=== PATIENT | female | born 1965 | race American Indian/Alaskan Native ===

== ENCOUNTER 2016-03-27 09:53 | Day surgery (SDC) | payer MEDICAID ==
[2016-03-27] MEDS ORDERED: DIPRIVAN 10 MG/ML IV ONE (10:48)
--- NOTE | 2016-03-27 10:57 | Anesthesia Consultation ---
Anesthesia Consult and Med Hx Date of service: 03/27/16 - Airway Anesthetic Teeth Evaluation: Good ROM Head & Neck: Adequate Mental/Hyoid Distance: Adequate Mallampati Class: Class III Intubation Access Assessment: Possibly Difficult - Pulmonary Exam CTA: Yes - Cardiac Exam Cardiac Exam: RRR - Pre-Operative Health Status ASA Pre-Surgery Classification: ASA3 Proposed Anesthetic Plan: MAC - Pulmonary SOB: Yes Hx Sleep Apnea: Yes - Cardiovascular System Hx Hypertension: Yes - Gastrointestinal Hx Gastroesophageal Reflux Disease: Yes - Endocrine Hx Non-Insulin Dependent Diabetes: Yes - Hematic Hx Anemia: Yes - Other Systems Hx Alcohol Use: Yes (OCCAS) Hx Obesity: Yes
--- NOTE | 2016-03-27 10:57 | Anesthesia Day of Surgery ---
Anesthesia Day of Surgery - Day of Surgery Patient Examined: Yes Patient H&P Reviewed: Yes Patient is NPO: Yes
[2016-03-27] MEDS ORDERED: NACL 0.9% 1000 ML 1,000 ML IV SCH (11:00)
--- NOTE | 2016-03-27 12:14 | Post Anesthesia Evaluation ---
- Post Anesthesia Evaluation Patient Participated: Yes Airway Patent: Yes Stable Respiratory Function: Yes Nausea/Vomiting: No Temp > 96.8F: Yes Pain Manageable: Yes Adequeate Hydration: Yes Anesthesia Complications: No Block Receding Appropriately: Not Applicable Patient on Ventilator: No
[2016-03-27 12:15] VITALS: BP 141/87
== END 2016-03-27 09:54 | disposition home or self-care (01) ==
LOC: GIO 09:53
PROVIDERS: ATTEND Specialist
DX: K21.0 Gastro-esophageal reflux disease with esophagitis (principal); K44.9 Diaphragmatic hernia without obstruction or gangrene; I10 Essential (primary) hypertension; E11.9 Type 2 diabetes mellitus without complications; M19.90 Unspecified osteoarthritis, unspecified site; D64.9 Anemia, unspecified; F32.9 Major depressive disorder, single episode, unspecified; F41.9 Anxiety disorder, unspecified; E78.00 Pure hypercholesterolemia, unspecified; E66.01 Morbid (severe) obesity due to excess calories; Z68.43 Body mass index [BMI] 50.0-59.9, adult; Z72.89 Other problems related to lifestyle; Z86.718 Personal history of other venous thrombosis and embolism; Z90.710 Acquired absence of both cervix and uterus
CPT/HCPCS: 43235; 82962; J2704; J7030

== ENCOUNTER 2016-04-03 08:32 | Inpatient (IN) | payer MEDICAID ==
--- NOTE | 2016-03-15 12:34 | Anesthesia Consultation ---
Anesthesia Consult and Med Hx Date of service: 04/03/16 - Airway Anesthetic Teeth Evaluation: Good ROM Head & Neck: Adequate Mental/Hyoid Distance: Adequate Mallampati Class: Class III Intubation Access Assessment: Probably Good - Pulmonary Exam CTA: Yes - Cardiac Exam Cardiac Exam: RRR - Pre-Operative Health Status ASA Pre-Surgery Classification: ASA3 Proposed Anesthetic Plan: General - Pulmonary Hx Sleep Apnea: Yes (09/2015) - Cardiovascular System Hx Hypertension: Yes (6 MONTHS) - Endocrine Hx Non-Insulin Dependent Diabetes: Yes - Hematic Hx Anemia: Yes - Other Systems Hx Alcohol Use: Yes (OCCAS)
[2016-03-15 12:56] LABS: Basophils % (Auto) 0.8 % (0.0-1.8); Eosinophils % (Auto) 2.6 % (0.0-4.3); Hematocrit 42.2 % (30.3-42.9); Hemoglobin 13.5 gm/dl (10.1-14.3); Mean Corpuscular HGB Conc 32 % (30-34); Mean Corpuscular Volume 75 fl (79-97); Platelet Count 207 K/mm3 (140-440); Red Blood Count 5.61 M/mm3 (3.65-5.03); Red Cell Distribution Width 15.6 % (13.2-15.2); White Blood Count 5.4 K/mm3 (4.5-11.0)
[2016-03-15 12:59] LABS: Mean Corpuscular Hemoglobin 24 pg (28-32)
[2016-03-15 13:19] LABS: Alanine Aminotransferase 36 units/L (7-56); Albumin 4.3 g/dL (3.9-5); Albumin/Globulin Ratio 1.4 %; Alkaline Phosphatase 95 units/L (35-129); BUN/Creatinine Ratio 26.66; Bilirubin,Total 0.5 mg/dL (0.1-1.2); Blood Urea Nitrogen 16 mg/dL (7-17); Calcium 8.9 mg/dL (8.4-10.2); Carbon Dioxide 27 mmol/L (22-30); Chloride 101.6 mmol/L (98-107); Glucose 122 mg/dL (65-100); Potassium 3.7 mmol/L (3.6-5.0); Sodium 143 mmol/L (137-145); Total Protein 7.4 g/dL (6.3-8.2)
[2016-03-15 13:22] LABS: Anion Gap 18 mmol/L
[~2016-04-03 08:32] MED LIST: LACTATED RINGERS 1,000 ML IV SCH; MARCAINE-EPI 0.5%-1:200,000 INFILTRATI ONE; NACL 0.9% IR ONE; PEPCID PO NR; XYLOCAINE 1% 20 mL INFILTRATI ONE
[2016-04-03] MEDS ORDERED: PEPCID IV NR (09:08)
[2016-04-03] MEDS: VERSED IV NR ×2 (09:48→10:19)
[2016-04-03] MEDS ORDERED: ZOFRAN IV PRN ×2 (09:52→16:25)
[2016-04-03] MEDS ORDERED: LOVENOX SUB-Q NR (10:00)
[2016-04-03] MEDS ORDERED: NACL 0.9% 1000 ML 1,000 ML IV SCH (10:00)
[2016-04-03] MEDS ORDERED: ANCEF/STERILE WATER 2 GM/20 ML IV NR (10:00)
[2016-04-03] MEDS ORDERED: FLAGYL 500 MG/100 ML 100 ML IV NR (10:00)
[2016-04-03] MEDS ORDERED: DEMEROL IV PRN (10:01)
[2016-04-03] MEDS: NACL 0.9% 1000 ML 1,000 ML IV SCH ×2 (10:14→18:30)
[2016-04-03] MEDS ORDERED: DIPRIVAN 10 MG/ML IV ONE (12:46)
[2016-04-03] MEDS ORDERED: DILAUDID ONE (12:46)
[2016-04-03] MEDS ORDERED: WATER FOR IRRIG STERILE IR ONE (13:18)
--- NOTE | 2016-04-03 13:32 | Anesthesia Day of Surgery ---
Anesthesia Day of Surgery - Day of Surgery Patient Examined: Yes Patient H&P Reviewed: Yes Patient is NPO: Yes
--- NOTE | 2016-04-03 13:51 | Admit Criteria Form ---
Admission Criteria Documentation: AMBULATORY SURGERY EXCEPTION CRITERIA Ambulatory Surgery Exception Criteria ( Place 'X' for any and all applicable criteria): Surgery or procedure performed on ambulatory basis may require inpatient stay for[A] ANY ONE of the following(1)(2)(3)(4)(5)(6)(7)(8)(9): [X] I. A preoperative situation, condition, or finding that warrants inpatient stay as indicated by ANY ONE of the following: [] a) Inpatient care needed because of severity of a disease or condition rather than the surgery (eg, severe cardiac or respiratory disease, severe infection) (15) (16 ) (17) (18) [] b) Emergent procedure (eg, angioplasty for acute ischemia)(19) [] c) Complex surgical approach or situation as indicated by ANY ONE of the following(3): [] i) Open approach needed instead of usual endoscopic, transcatheter, or other less invasive procedure [] ii) Difficult approach because of previous operation [] iii) Airway monitoring required after open neck procedures(20)(21) [] iv) Large mass requiring unusually extensive dissection [] v) Additional complicating feature requiring inpatient care (eg, drain management)(22(23): [X] d) Major surgery in a pt with high anesthetic risk as indicated by ANY ONE of the following (2)(3)(5)(7)(8): [X] i) ASA risk class III or higher (severe systemic disease impairing function) [D] [] ii) Advanced age (eg, older than 85 years)(14)(24) [] iii) Symptomatic heart failure(25) [] iv) Symptomatic asthma or COPD(8)(21) [X] v) Morbid obesity with hemodynamic or respiratory problems(20)( 21)(26)(27) [] vi) Obstructive sleep apnea(20)(21) [] vii) Former premature infants who are younger than 60 weeks [] viii) High risk for severe postoperative abnormalities (eg, severe postoperative hypocalcemia after parathyroidectomy for severe hyperparathyroidism)(27)( 28) [] ix) Unstable angina(25) [] e) Drug-related risk requiring inpatient stay as indicated by ANY ONE of the following(5)(10)(14)(32)(33) [] i) Procedure requires discontinuing drugs or other therapy (eg , antiarrhythmic medication, antiseizure medication), which necessitates inpatient observation or treatment.(18)(31) [] ii) Major surgery and high risk drug use as indicated by ANY ONE of the following: [] 1) Active abuse of cocaine or similar drug [] 2) Monoamine oxidase inhibitor use [] 3) Other drug identified as posing risk [] f) Inadequate outpatient care situation as indicated by ANY ONE of the following(5)(10)(14)(32)(33) [] i) Patient lives remote from medical facility and procedure has urgent complication potential, and temporary nearby residence cannot be arranged [] ii) Patient will have postprocedure incapacitation and inadequate assistance at home, or alternative level of care cannot be arranged. [] iii) Patient will have long general anesthesia or procedure side effect resolution time, and competent person to stay with patient on first postoperative night at home or alternative level of care cannot be arranged. []iv) Other inadequate outpatient situation that cannot be handled by other means [] II. A perioperative event, condition, or finding that warrants inpatient stay as indicated by ANY ONE of the following (1)(2)(3): [] a) Inadequate physiologic recovery: cardiovascular, respiratory, or hemodynamic status not normal or near preoperative baseline(18) [] b) Hemodynamic instability [] c) Patient not alert with near normal or baseline mental status [] d) Temperature not normal or as expected and not appropriate for outpatient treatment of condition [] e) Ambulatory or appropriate activity level status not yet achieved post procedure [E](34)(35)(36) [] f) Operative site not appropriate (eg, unexpected or excessive drainage or bleeding) [] g) Postoperative effects not resolved or adequately managed (eg, significant pain or vomiting not appropriate for outpatient or next level of care)(10)(12) [] h) Complicating features requiring inpatient care as indicated by ANY ONE of the following(37): [] i) Severe complications of procedure (eg, bowel injury, airway compromise, vascular injury,severe hemorrhage) [] ii) Extensive (eg, dissection far beyond usual scope of procedure ) or prolonged (eg, 120 minutes beyond usual) surgery needed requiring inpatient postoperative care [] iii) Conversion to an open or complex procedure that requires inpatient care (eg, open vs laparoscopic cholecystectomy, abdominal vs vaginal hysterectomy)(38) [] iv) Comorbid condition or test result identified during or post procedure that requires inpatient care (7) [] v) Malignant hyperthermia(30) [] vi) Other complicating feature requiring inpatient care(22)(23) Inpatient stay may be needed until ALL of the following are present (1)(2)(3)(4) (5)(6)(10)(14)(33)(40): []a) Physiologic recovery: cardiovascular, respiratory, and hemodynamic status normal or near preoperative baseline []b) Hemodynamic stability []c) Patient alert, with near normal or baseline mental status []d) Temperature appropriate: patient afebrile or temperature appropriate for outpt treatment of condition []e) Activity level appropriate: ambulatory or appropriate activity level post procedure []f) Operative site appropriate as indicated by ALL of the following: []i) Site dry or with expected drainage []ii) Any blood noted is as expected for procedure. []g) Postoperative effects resolved or managed as indicated by ALL of the following: []i) Pain management appropriate for outpatient (or next level of) care(10) []ii) Minimal nausea and vomiting: if present, successfully treated with oral medication(12) []iii) Headache, dizziness, or drowsiness (if present) are mild. []h) Voiding status acceptable as indicated by ANY ONE of the following: []i) Voiding spontaneously []ii) No voiding but instructions given for follow-up in 6 to 8 hours []iii) Urinary catheter in place, and instructions given for follow-up []i) Complicating features requiring inpatient care manageable at a lower level of care(37) []j) Comorbid conditions manageable at a lower level of care(37) The original [facility] content created by [employer] [employer] has been revised. The portions of the content which have been revised are identified through the use of italic text or in bold, and [facility] has neither reviewed nor approved the modified material. All other unmodified content is copyright [facility]. Please see references footnoted in the original [facility] edition 2016 Admission Criteria Met: Yes
[2016-04-03] MEDS ORDERED: TRANSDERM-SCOP TD NR (14:00)
[2016-04-03] MEDS ORDERED: ZEMURON IV ONE (14:03)
[2016-04-03] MEDS ORDERED: XYLOCAINE MPF 2% ONE (14:03)
[2016-04-03] MEDS ORDERED: BLOXIVERZ ONE (14:03)
[2016-04-03] MEDS ORDERED: DECADRON ONE (14:03)
[2016-04-03] MEDS ORDERED: QUELICIN ONE (14:03)
[2016-04-03] MEDS ORDERED: ROBINUL ONE (14:03)
[2016-04-03] MEDS ORDERED: NEO SYNEPHRINE/NS Syringe(OR USE) IV ONE (14:41)
[2016-04-03] MEDS ORDERED: XYLOCAINE 1% 20 mL INFILTRATI ONE (14:57)
[2016-04-03] MEDS ORDERED: MARCAINE-EPI 0.5%-1:200,000 INFILTRATI ONE (14:57)
[2016-04-03] MEDS ORDERED: NACL 0.9% IR ONE (14:57)
[2016-04-03] MEDS ORDERED: NACL 0.9% 1000 ML 1,000 ML ONE (15:01)
[2016-04-03] MEDS: TORADOL IV SCH ×3 (16:25→23:48)
[2016-04-03] MEDS: DILAUDID IV PRN ×5 (16:32→20:58)
[2016-04-03] MEDS: ZOFRAN IV PRN (20:59)
[2016-04-03] MEDS: LOVENOX SUB-Q SCH (21:00)
[2016-04-04] MEDS: ZOFRAN IV PRN ×2 (03:13→09:21)
[2016-04-04] MEDS: DILAUDID IV PRN ×2 (03:13→09:21)
[2016-04-04] MEDS: LOVENOX SUB-Q SCH (09:21)
[2016-04-04] MEDS: TORADOL IV SCH (12:00)
[2016-04-04 14:50] LABS: Phosphorous 3.5 mg/dL (2.5-4.5)
--- NOTE | 2016-04-04 15:38 | Discharge Summary ---
Providers - Providers Date of Admission: 04/03/16 08:32 Date of discharge: 04/04/16 Attending physician: JOSEPH KABA Primary care physician: SAYRA FLORES MD Hospitalization Reason for admission: post op observation Condition: Stable Disposition: DISCHARGED TO HOME OR SELFCARE Core Measure Documentation - Palliative Care Palliative Care/ Comfort Measures: Not Applicable - Core Measures Any of the following diagnoses?: none Exam - Physical Exam Narrative exam: VSS, AF NAD Lungs CTA BL Heart: RRR Abd Soft, Non distended, wounds c/d/i and TTP around wounds Neuro: AAOx3 - Constitutional Vitals: Temp Pulse Resp BP Pulse Ox 98.2 F 97 H 20 172/97 96 04/04/16 00:22 04/04/16 00:22 04/04/16 00:22 04/04/16 00:22 04/04/16 00:22 Plan Activity: advance as tolerated Weight Bearing Status: Full Weight Bearing Diet: other (Bariatric Diet stage 1) Wound: keep clean and dry Special Instructions: no heavy lifting Follow up with: PRIMARY CAREMD [Primary Care Provider] - 7 Days
[2016-04-04 16:20] VITALS: BP 117/59
[2016-04-04 19:53] LABS: Alanine Aminotransferase 52 units/L (7-56); Albumin 4.4 g/dL (3.9-5); Albumin/Globulin Ratio 1.4 %; Alkaline Phosphatase 80 units/L (35-129); Anion Gap 28 mmol/L; Bilirubin,Total 0.5 mg/dL (0.1-1.2); Blood Urea Nitrogen 8 mg/dL (7-17); Calcium 8.8 mg/dL (8.4-10.2); Carbon Dioxide 18 mmol/L (22-30); Glucose 105 mg/dL (65-100); Potassium 4.1 mmol/L (3.6-5.0); Sodium 142 mmol/L (137-145); Total Protein 7.6 g/dL (6.3-8.2)
--- NOTE | 2016-04-09 11:52 | Discharge Summary ---
Providers - Providers Date of Admission: 04/03/16 08:32 Attending physician: JOSEPH KABA Primary care physician: [employer] Hospitalization Condition: Good Disposition: DISCHARGED TO HOME OR SELFCARE Core Measure Documentation - Palliative Care Palliative Care/ Comfort Measures: Not Applicable - Core Measures Any of the following diagnoses?: none Exam - Constitutional Vitals: Temp Pulse Resp BP Pulse Ox 98.5 F 71 18 117/59 96 04/04/16 08:00 04/04/16 08:00 04/04/16 08:00 04/04/16 08:00 04/04/16 10:00 General appearance: Present: no acute distress, well-nourished - EENT Eyes: Present: PERRL, EOM intact ENT: hearing intact, clear oral mucosa, dentition normal - Neck Neck: Present: supple, normal ROM - Respiratory Respiratory effort: normal Respiratory: bilateral: CTA - Cardiovascular Rhythm: regular - Extremities Extremities: no ischemia, pulses intact, No edema Peripheral Pulses: within normal limits - Abdominal General gastrointestinal: Present: soft, non-tender Female genitourinary: Present: normal - Rectal Rectal Exam: deferred - Integumentary Integumentary: Present: clear, warm, dry - Musculoskeletal Musculoskeletal: strength equal bilaterally - Psychiatric Psychiatric: appropriate mood/affect - Neurologic Neurologic: moves all extremities Plan Activity: no restrictions Follow up with: PRIMARY CARE, [Primary Care Provider] - 7 Days
== END 2016-04-04 13:00 | disposition home or self-care (01) | DRG 620 ==
LOC: 3A 08:32 → 2B-SURG 16:39
PROVIDERS: ADMIT Specialist; ATTEND Specialist
PROC: 0BQS4ZZ (ICD-10-PCS; principal; 2016-04-03)
PROC: 0DB64Z3 Excision of Stomach, Percutaneous Endoscopic Approach, Vertical (ICD-10-PCS; principal; 2016-04-03)
PROC: 0BQR4ZZ (ICD-10-PCS; principal; 2016-04-03)
DX: E66.01 Morbid (severe) obesity due to excess calories (principal); K50.90 Crohn's disease, unspecified, without complications; E11.9 Type 2 diabetes mellitus without complications; F41.9 Anxiety disorder, unspecified; F32.9 Major depressive disorder, single episode, unspecified; M19.90 Unspecified osteoarthritis, unspecified site; I10 Essential (primary) hypertension; E78.5 Hyperlipidemia, unspecified; K21.9 Gastro-esophageal reflux disease without esophagitis; Z68.43 Body mass index [BMI] 50.0-59.9, adult; Z83.3 Family history of diabetes mellitus; Z82.49 Family history of ischemic heart disease and other diseases of the circulatory system; Z80.9 Family history of malignant neoplasm, unspecified; Z84.89 Family history of other specified conditions; Z88.6 Allergy status to analgesic agent; Z90.710 Acquired absence of both cervix and uterus; Z71.3 Dietary counseling and surveillance; K44.9 Diaphragmatic hernia without obstruction or gangrene
CPT/HCPCS: 36415; 80053; 82962; 83036; 83735; 84100; 85025; 88307; 94760; C9250; J0330; J0690; J1100; J1170; J1650; J1885; J2250; J2370; J2405; J2704; J2710; J7030; J7120

== ENCOUNTER 2017-11-13 11:00 | Outpatient (CLI) | payer MEDICAID | END 2017-11-13 11:01 | disposition home or self-care (01) | LOC: SLR 11:00 | PROVIDERS: ATTEND Otolaryngology | DX: G47.33 Obstructive sleep apnea (adult) (pediatric) (principal); R06.83 Snoring; E78.00 Pure hypercholesterolemia, unspecified; I10 Essential (primary) hypertension; K21.9 Gastro-esophageal reflux disease without esophagitis; E66.9 Obesity, unspecified; M19.90 Unspecified osteoarthritis, unspecified site; E11.9 Type 2 diabetes mellitus without complications; Z90.89 Acquired absence of other organs; Z90.49 Acquired absence of other specified parts of digestive tract; Z90.710 Acquired absence of both cervix and uterus | CPT/HCPCS: 95811 ==

== ENCOUNTER 2018-06-17 06:17 | Observation (INO) | payer MEDICAID ==
--- NOTE | 2018-06-16 09:54 | Anesthesia Consultation ---
Anesthesia Consult and Med Hx Date of service: 06/16/18 - Airway Anesthetic Teeth Evaluation: Good ROM Head & Neck: Adequate Mental/Hyoid Distance: Adequate Mallampati Class: Class III Intubation Access Assessment: Probably Good - Pulmonary Exam CTA: Yes - Cardiac Exam Cardiac Exam: RRR - Pre-Operative Health Status ASA Pre-Surgery Classification: ASA3 Proposed Anesthetic Plan: General - Pulmonary Hx Smoking: No Hx Asthma: No SOB: Yes (WITH EXERTION) Hx Sleep Apnea: Yes - Cardiovascular System Hx Hypertension: Yes (2013) Hx Heart Attack/AMI: No Hx Cardia Arrhythmia: No Hx Valvular Heart Disease: No Hx Heart Murmur: No - Central Nervous System Hx Neuromuscular Disorder: Yes (h/o diabetic neuropathy hands and feet. ) Hx Psychiatric Problems: Yes - Gastrointestinal Hx Gastroesophageal Reflux Disease: Yes (due to hiatal hernia) - Endocrine Hx Renal Disease: No Hx Liver Disease: No Hx Non-Insulin Dependent Diabetes: Yes (resolved; residual diabetic neuropathy) Hx Thyroid Disease: No - Hematic Hx Anemia: Yes - Other Systems Hx Alcohol Use: No (OCCAS) Hx Substance Use: No Hx Obesity: Yes - Additional Comments Anesthesia Medical History Comments: No GAC, No FHAC
--- NOTE | 2018-06-16 10:25 | Anesthesia Consultation ---
Anesthesia Consult and Med Hx Date of service: 06/17/18 - Airway Anesthetic Teeth Evaluation: Good ROM Head & Neck: Adequate Mental/Hyoid Distance: Adequate Mallampati Class: Class II Intubation Access Assessment: Probably Good - Pulmonary Exam CTA: Yes - Cardiac Exam Cardiac Exam: RRR - Pre-Operative Health Status ASA Pre-Surgery Classification: ASA3 Proposed Anesthetic Plan: General - Pulmonary Hx Smoking: No Hx Asthma: No SOB: Yes (WITH EXERTION) Hx Sleep Apnea: Yes - Cardiovascular System Hx Hypertension: Yes (2013) Hx Heart Attack/AMI: No Hx Cardia Arrhythmia: No Hx Valvular Heart Disease: No Hx Heart Murmur: No - Central Nervous System Hx Neuromuscular Disorder: Yes (h/o diabetic neuropathy hands and feet. ) Hx Psychiatric Problems: Yes - Gastrointestinal Hx Gastroesophageal Reflux Disease: Yes (due to hiatal hernia) - Endocrine Hx Renal Disease: No Hx Liver Disease: No Hx Non-Insulin Dependent Diabetes: Yes (resolved; residual diabetic neuropathy) Hx Thyroid Disease: No - Hematic Hx Anemia: Yes - Other Systems Hx Alcohol Use: No (OCCAS) Hx Substance Use: No Hx Obesity: Yes - Additional Comments Anesthesia Medical History Comments: No GAC, No FHAC
[~2018-06-17 06:17] MED LIST changes: +ANCEF/STERILE WATER 2 GM/20 ML 2 GM/20 ML SYRINGE IV NR; +FLAGYL 500 MG/100 ML 500 MG/100 ML BAG IV NR; +LOVENOX SUB-Q NR; -MARCAINE-EPI 0.5%-1:200,000 INFILTRATI ONE; -NACL 0.9% IR ONE; -PEPCID PO NR; +TRANSDERM-SCOP TD SCH; -XYLOCAINE 1% 20 mL INFILTRATI ONE
[2018-06-17] MEDS ORDERED: NACL BACTERIOSTATIC INFILTRATI ONE (06:59)
[2018-06-17] MEDS ORDERED: DIPRIVAN 10 MG/ML IV ONE (07:20)
[2018-06-17] MEDS ORDERED: ZEMURON IV ONE (07:20)
[2018-06-17] MEDS ORDERED: SUBLIMAZE ONE (07:20)
[2018-06-17] MEDS ORDERED: XYLOCAINE MPF 2% ONE (07:20)
[2018-06-17] MEDS ORDERED: VERSED IV NR (07:29)
[2018-06-17] MEDS ORDERED: XYLOCAINE 1% 20 mL ONE (07:38)
[2018-06-17] MEDS ORDERED: MARCAINE-EPI 0.5%-1:200,000 INFILTRATI ONE ×2 (07:39→07:57)
[2018-06-17] MEDS ORDERED: NACL 0.9% IR ONE ×2 (07:57)
[2018-06-17] MEDS ORDERED: XYLOCAINE 1% 20 mL INFILTRATI ONE (07:57)
[2018-06-17] MEDS ORDERED: ANCEF/STERILE WATER 2 GM/20 ML 2 GM/20 ML SYRINGE IV NR (08:00)
[2018-06-17] MEDS ORDERED: FLAGYL 500 MG/100 ML 500 MG/100 ML BAG IV NR (08:00)
[2018-06-17] MEDS ORDERED: LOVENOX SUB-Q NR (08:00)
[2018-06-17] MEDS ORDERED: SUBLIMAZE IV PRN (08:16)
--- NOTE | 2018-06-17 08:16 | Anesthesia Day of Surgery ---
Anesthesia Day of Surgery - Day of Surgery Patient Examined: Yes Patient H&P Reviewed: Yes Patient is NPO: Yes Cardiac Clearance: Yes
[2018-06-17] MEDS ORDERED: NEO SYNEPHRINE ONE ×2 (09:14→09:16)
[2018-06-17] MEDS ORDERED: NEO SYNEPHRINE/NS Syringe(OR USE) IV ONE (09:14)
[2018-06-17] MEDS ORDERED: ZOFRAN IV PRN (09:23)
[2018-06-17] MEDS ORDERED: APRESOLINE IV PRN (09:23)
[2018-06-17] MEDS ORDERED: REGLAN IV PRN (09:23)
[2018-06-17] MEDS ORDERED: FLEXERIL PO PRN (09:27)
[2018-06-17] MEDS ORDERED: LACTATED RINGERS 1,000 ML IV SCH (10:00)
[2018-06-17] MEDS: NEURONTIN PO SCH ×2 (10:00→21:22)
[2018-06-17] MEDS ORDERED: LOVENOX SUB-Q SCH (10:00)
[2018-06-17] MEDS ORDERED: LACTATED RINGERS 1,000 ML ONE (10:17)
[2018-06-17] MEDS: DILAUDID IV PRN ×4 (12:31→23:19)
--- NOTE | 2018-06-17 14:11 | Post Anesthesia Evaluation ---
- Post Anesthesia Evaluation Patient Participated: Yes Airway Patent: Yes Stable Respiratory Function: Yes Nausea/Vomiting: No Temp > 96.8F: Yes Pain Manageable: Yes Adequeate Hydration: Yes Anesthesia Complications: No
[2018-06-17] MEDS: MYLICON PO PRN ×2 (16:29→22:41)
[2018-06-17] MEDS: TRANSDERM-SCOP TD SCH ×2 (19:53→19:55)
[2018-06-17] MEDS ORDERED: AMBIEN PO PRN (22:00)
[2018-06-17] MEDS ORDERED: PRAVACHOL PO SCH (22:00)
[2018-06-17] MEDS: NORCO PO PRN (22:39)
[2018-06-18 05:29] LABS: Basophils % (Auto) 0.3 % (0.0-1.8); Eosinophils % (Auto) 0.7 % (0.0-4.3); Hematocrit 37.1 % (30.3-42.9); Hemoglobin 12.1 gm/dl (10.1-14.3); Lymphocytes # (Auto) 1.2 K/mm3 (1.2-5.4); Lymphocytes % (Auto) 17.2 % (13.4-35.0); Mean Corpuscular HGB Conc 33 % (30-34); Mean Corpuscular Volume 77 fl (79-97); Monocytes # (Auto) 0.4 K/mm3 (0.0-0.8); Monocytes % (Auto) 6.1 % (0.0-7.3); Platelet Count 221 K/mm3 (140-440); Red Blood Count 4.84 M/mm3 (3.65-5.03); Red Cell Distribution Width 14.6 % (13.2-15.2)
[2018-06-18 05:56] LABS: Alanine Aminotransferase 56 units/L (7-56); Albumin 3.8 g/dL (3.9-5); BUN/Creatinine Ratio 15; Blood Urea Nitrogen 9 mg/dL (7-17); Calcium 8.6 mg/dL (8.4-10.2); Hemolysis Index 4
[2018-06-18] MEDS: DILAUDID IV PRN (06:00)
--- NOTE | 2018-06-18 07:47 | Discharge Summary ---
Providers - Providers Date of Admission: 06/17/18 09:25 Date of discharge: 06/18/18 Attending physician: JOSEPH ADAMS Primary care physician: YARIEL JOYNER Hospitalization Reason for admission: postop monitoring Condition: Good Procedures: 06/17/18: Laparoscopic conversion sleeve to Maxwell-en-Y gastric bypass Hospital course: 52F admitted after her operation for routine postop care. She had no events overnight, ambulated, and tolerated a CLD. She was dc home in stable condition. Disposition: DC-01 TO HOME OR SELFCARE Core Measure Documentation - Palliative Care Palliative Care/ Comfort Measures: Not Applicable - Core Measures Any of the following diagnoses?: none - VTE Discharge Requirements Deep Vein Thrombosis/Pulmonary Embolism Present on Admission: No - Acute [place] Discharge Requirements Aspirin at discharge: No Reason for no aspirin on DC: Surgical contraindication - Heart Failure Discharge Requirements PAPA/ARB for LVSD if EF <40%: Not Applicable - Stroke Discharge Requirements Statin for LDL = or >70 mg/dl on DC: Not Applicable Exam - Physical Exam Narrative exam: Gen: AAO, NAD Heart: RRR Lungs: CTAB, no wheezes, no rales Abd: Obese, soft, NT, ND. Bandages c/d/i. Ext: No LE edema. - Constitutional Vitals: Temp Pulse Resp BP Pulse Ox 98.6 F 70 18 114/61 88 06/18/18 07:05 06/18/18 07:05 06/18/18 07:05 06/18/18 07:05 06/18/18 07:05 Plan Diet: clear liquids Special Instructions: no heavy lifting Additional Instructions: Hany Adams as scheduled Follow up with: YARIEL JOYNER III, [employer] [Primary Care Provider] - 7 Days
[2018-06-18] MEDS ORDERED: NORVASC PO SCH (10:00)
[2018-06-18] MEDS ORDERED: LOVENOX SUB-Q SCH (10:00)
[2018-06-18] MEDS ORDERED: DIOVAN PO SCH (10:00)
[2018-06-18] MEDS: NEURONTIN PO SCH (10:00)
[2018-06-18] MEDS: NORCO PO PRN ×2 (10:07→14:55)
[2018-06-18 11:44] VITALS: BP 106/70
[2018-06-18] MEDS: MYLICON PO PRN (12:56)
== END 2018-06-18 15:40 | disposition home or self-care (01) ==
LOC: OR 06:17 → 3B-SURG 09:25
PROVIDERS: ADMIT Specialist; ATTEND Specialist
DX: E66.01 Morbid (severe) obesity due to excess calories (principal); R10.13 Epigastric pain; I10 Essential (primary) hypertension; E78.00 Pure hypercholesterolemia, unspecified; M19.90 Unspecified osteoarthritis, unspecified site; F32.9 Major depressive disorder, single episode, unspecified; F41.9 Anxiety disorder, unspecified; E11.9 Type 2 diabetes mellitus without complications; K21.9 Gastro-esophageal reflux disease without esophagitis; R06.02 Shortness of breath; K50.918 Crohn's disease, unspecified, with other complication; Z98.84 Bariatric surgery status; Z90.710 Acquired absence of both cervix and uterus; Z90.89 Acquired absence of other organs; Z98.890 Other specified postprocedural states; Z79.899 Other long term (current) drug therapy; Z88.5 Allergy status to narcotic agent
CPT/HCPCS: 36415; 43235; 43775; 80053; 85025; 96372; 96374; 96375; 96376; A4217; A9270; G0378; J0690; J1170; J1650; J2250; J2370; J2405; J2704; J2765; J3010; J7120

== ENCOUNTER 2018-07-01 12:42 | Emergency (ER) | payer MEDICAID ==
[2018-07-01 13:06] VITALS: BP 132/88
--- NOTE | 2018-07-01 13:07 | Emergency Department Report ---
Chief Complaint: Abdominal Pain Stated Complaint: ABD HOLE/GASTRO BYPASS/PAIN Time Seen by Provider: 07/01/18 13:00 - HPI History of Present Illness: had gastric bypass and hernia repair on june [address] Adams pt was seen on 06/26/18 in [place], having abd pain, constant vomiting pt states she had a Ct abd/pelvis and states "there was a hole in her abdomen" pt has CT disk but no report last had one BM yesterday, she states it had been a week since then pt states she has decreased urine output (+) N/V no fever no hematochezia, no melena, no hematemesis still tolerating PO intake PMHx HTN, HLD PSHx hysterectomy, cholescystectomy MSE screening note: Focused history and physical exam performed. Due to findings the following was ordered: UA, labs, Ct abd/pelvis with IV contrast ED Disposition for MSE Condition: Stable Instructions: Abdominal Pain (ED)
[2018-07-01 13:51] LABS: Basophils # (Auto) 0.1 K/mm3 (0.0-0.1); Basophils % (Auto) 2.6 % (0.0-1.8); Eosinophils # (Auto) 0.3 K/mm3 (0.0-0.4); Eosinophils % (Auto) 8.1 % (0.0-4.3); Hematocrit 41.5 % (30.3-42.9); Hemoglobin 13.2 gm/dl (10.1-14.3); Lymphocytes # (Auto) 1.9 K/mm3 (1.2-5.4); Lymphocytes % (Auto) 45.3 % (13.4-35.0); Mean Corpuscular HGB Conc 32 % (30-34); Mean Corpuscular Volume 78 fl (79-97); Monocytes # (Auto) 0.4 K/mm3 (0.0-0.8); Monocytes % (Auto) 8.7 % (0.0-7.3); Platelet Count 231 K/mm3 (140-440); Red Blood Count 5.34 M/mm3 (3.65-5.03); Red Cell Distribution Width 14.8 % (13.2-15.2)
[2018-07-01 14:31] LABS: Alanine Aminotransferase 15 units/L (7-56); Albumin 4.3 g/dL (3.9-5); BUN/Creatinine Ratio 17; Blood Urea Nitrogen 12 mg/dL (7-17); Calcium 9.8 mg/dL (8.4-10.2); Hemolysis Index 11
[2018-07-01 15:00] LABS: Bacteria,Urine 4+ /HPF (Negative); Bilirubin,Urine NEG (Negative); Blood,Urine NEG (Negative); Color,Urine Amber (Yellow); Mucus,Urine 1+ /HPF
--- NOTE | 2018-07-01 18:04 | Cat Scan Report ---
PROCEDURE: CT abdomen and pelvis with contrast. TECHNIQUE: Computerized axial tomography of the abdomen and pelvis was performed after the IV inject ion of iodinated nonionic contrast. CT DOSE LENGTH PRODUCT: 3518.9 mGycm HISTORY: abd pain, hernia/gastric bypass on 06/17 COMPARISONS: None. FINDINGS: The lung bases are clear. There are no pleural effusions. The heart size is normal. The liver, pancre as and spleen appear normal. Cholecystectomy clips are present. There is no biliary dilatation. The a drenal glands are not enlarged. Both kidneys appear normal in size and configuration. The abdominal a liv has a normal caliber. There is no retroperitoneal adenopathy. There are surgical jeremias in the stomach. The gastrointestinal tract is unremarkable. The appendix is not visualized. There is a small hernia located laterally on the right side. This hernia passes through the transversus abdominis mus pop and both internal and external oblique muscles. It is seen on images 98 through 108 of series 2. The hernia consists of some mesenteric fat and a small amount of fluid. The bladder is unremarkable. The uterus has been removed. The regional skeleton appears intact. IMPRESSION: Previous cholecystectomy and hysterectomy. Previous gastric surgery. Small right lateral ventral wall hernia as described. This document is electronically signed by Oumar Canales MD., July 01 2018 06:02:53 PM ET
--- NOTE | 2018-07-01 19:14 | Emergency Department Report ---
ED Abdominal Pain HPI - General Chief Complaint: Abdominal Pain Stated Complaint: ABD HOLE/GASTRO BYPASS/PAIN Time Seen by Provider: 07/01/18 13:00 Source: patient Mode of arrival: Ambulatory Limitations: No Limitations - History of Present Illness Initial Comments: had gastric bypass and hernia repair on june [address] Adams pt was seen on 06/26/18 in [place], having abd pain, constant vomiting pt states she had a Ct abd/pelvis and states "there was a hole in her abdomen" pt has CT disk but no report last had one BM yesterday, she states it had been a week since then pt states she has decreased urine output (+) N/V no fever no hematochezia, no melena, no hematemesis still tolerating PO intake -: days(s) (2) Location: RLQ Severity scale (0 -10): 9 Consistency: intermittent Improves With: nothing Worsens With: movement Associated Symptoms: nausea, vomiting, constipation Treatments Prior to Arrival: prescription analgesics - Related Data Home Medications Medication Instructions Recorded Confirmed Last Taken Cyclobenzaprine [Flexeril 10 MG 10 mg PO TID PRN 03/14/16 06/13/18 06/16/18 TAB] Gabapentin Enacarbil [Horizant] 300 mg PO BID 03/14/16 06/13/18 06/16/18 Pravastatin Sodium [Pravastatin] 40 mg PO QHS 03/14/16 06/13/18 06/16/18 Valsartan [Diovan] 160 mg PO QDAY 03/14/16 06/13/18 06/16/18 amLODIPine [Norvasc] 10 mg PO DAILY 03/14/16 06/17/18 06/17/18 04:45 Nortriptyline HCl [Pamelor] 50 mg PO QHS PRN 06/13/18 06/13/18 06/16/18 Zolpidem [Ambien] 10 mg PO QHS PRN 06/13/18 06/13/18 06/16/18 hydrOXYzine HCL [Atarax] 25 mg PO QDAY PRN 06/13/18 06/13/18 06/16/18 Allergies Allergy/AdvReac Type Severity Reaction Status Date / Time morphine Allergy Nausea Verified 07/01/18 13:00 promethazine-codeine Allergy Hallucinati Uncoded 06/13/18 17:17 ons ED Review of Systems ROS: Stated complaint: ABD HOLE/GASTRO BYPASS/PAIN Other details as noted in HPI Comment: All other systems reviewed and negative Constitutional: denies: chills, fever Eyes: denies: eye pain, eye discharge, vision change ENT: as per HPI Respiratory: denies: cough, shortness of breath, wheezing Gastrointestinal: abdominal pain, nausea, vomiting, constipation ED Past Medical Hx - Past Medical History Previous Medical History?: Yes Hx Hypertension: Yes Hx Heart Attack/AMI: No Hx Diabetes: Yes (RESOLVED WITH FIRST GASTRIC SX) Hx Deep Vein Thrombosis: Yes (X2) Hx Liver Disease: No Hx Renal Disease: No Hx Arthritis: Yes Hx Asthma: No Hx HIV: No Additional medical history: chrons, pernicious anemia - Surgical History Past Surgical History?: Yes Hx Cholecystectomy: Yes Additional Surgical History: , hysterectomy, gastric bypass 06/17/18, hernia repair 06/17/18 - Social History Smoking Status: Never Smoker Substance Use Type: None - Medications Home Medications: Home Medications Medication Instructions Recorded Confirmed Last Taken Type Cyclobenzaprine [Flexeril 10 MG 10 mg PO TID PRN 03/14/16 06/13/18 06/16/18 History TAB] Gabapentin Enacarbil [Horizant] 300 mg PO BID 03/14/16 06/13/18 06/16/18 History Pravastatin Sodium [Pravastatin] 40 mg PO QHS 03/14/16 06/13/18 06/16/18 History Valsartan [Diovan] 160 mg PO QDAY 03/14/16 06/13/18 06/16/18 History amLODIPine [Norvasc] 10 mg PO DAILY 03/14/16 06/17/18 06/17/18 04:45 History Nortriptyline HCl [Pamelor] 50 mg PO QHS PRN 06/13/18 06/13/18 06/16/18 History Zolpidem [Ambien] 10 mg PO QHS PRN 06/13/18 06/13/18 06/16/18 History hydrOXYzine HCL [Atarax] 25 mg PO QDAY PRN 06/13/18 06/13/18 06/16/18 History ED Physical Exam - General Limitations: No Limitations General appearance: alert, in no apparent distress - Head Head exam: Present: atraumatic, normocephalic - Eye Eye exam: Present: normal appearance, EOMI - ENT ENT exam: Present: mucous membranes moist - Neck Neck exam: Present: normal inspection - Respiratory Respiratory exam: Present: normal lung sounds bilaterally. Absent: respiratory distress - Cardiovascular Cardiovascular Exam: Present: regular rate, normal rhythm. Absent: systolic murmur, diastolic murmur, rubs, gallop - GI/Abdominal GI/Abdominal exam: Present: soft, tenderness (rlq), normal bowel sounds - Extremities Exam Extremities exam: Present: normal inspection, full ROM - Back Exam Back exam: Present: normal inspection - Neurological Exam Neurological exam: Present: alert, oriented X3 - Psychiatric Psychiatric exam: Present: normal affect, normal mood - Skin Skin exam: Present: warm, dry, intact, normal color. Absent: rash ED Course Vital Signs 07/01/18 13:00 Temperature 98.2 F Pulse Rate 72 Respiratory 20 Rate Blood Pressure 132/88 [Right] O2 Sat by Pulse 96 Oximetry ED Medical Decision Making - Lab Data Result diagrams: 07/01/18 13:34 07/01/18 13:34 - Radiology Data Radiology results: report reviewed Patient: JANUARY BACON MR#: [id number] : 1965 Acct:[id number] Age/Sex: 52 / F ADM Date: 07/01/18 Loc: ED Attending Dr: Ordering Physician: FANI GARNER Date of Service: 07/01/18 Procedure(s): CT abdomen pelvis w con Accession Number(s): [id number] cc: FANI GARNER PROCEDURE: CT abdomen and pelvis with contrast. TECHNIQUE: Computerized axial tomography of the abdomen and pelvis was performed after the IV injection of iodinated nonionic contrast. CT DOSE LENGTH PRODUCT: 3518.9 mGycm HISTORY: abd pain, hernia/gastric bypass on 06/17 COMPARISONS: None. FINDINGS: The lung bases are clear. There are no pleural effusions. The heart size is normal. The liver, pancreas and spleen appear normal. Cholecystectomy clips are present. There is no biliary dilatation. The adrenal glands are not enlarged. Both kidneys appear normal in size and configuration. The abdominal aorta has a normal caliber. There is no retroperitoneal adenopathy. There are surgical jeremias in the stomach. The gastrointestinal tract is unremarkable. The appendix is not visualized. There is a small hernia located laterally on the right side. This hernia passes through the transversus abdominis muscle and both internal and external oblique muscles. It is seen on images 98 through 108 of series 2. The hernia consists of some mesenteric fat and a small amount of fluid. The bladder is unremarkable. The uterus has been removed. The regional skeleton appears intact. IMPRESSION: Previous cholecystectomy and hysterectomy. Previous gastric surgery. Small right lateral ventral wall hernia as described. This document is electronically signed by Oumar Li MD., July 01 2018 06:02:53 PM ET Transcribed By: [facility] Dictated By: OUMAR LI MD Electronically Authenticated By: OUMAR LI MD Signed Date/Time: 07/01/181803 DD/ 28 TD/TT: 07/01/181728 - Medical Decision Making Patient has been seen by this provider in [facility]. CT of abdomen was ordered and completed shows patient has a hernia composed of mesenteric fat. Spoke to Dr. Garrick Diamond and Dr. Adams's office to request the patient placed on nothing by mouth at midnight and to follow up in Dr. Tirado office at 30 on the [facility]. We would discharge patient on pain medication with instructions to follow-up with her surgeon. Critical care attestation.: If time is entered above; I have spent that time in minutes in the direct care of this critically ill patient, excluding procedure time. ED Disposition Clinical Impression: Hernia of abdominal cavity Disposition: DC-01 TO HOME OR SELFCARE Is pt being admited?: No Does the pt Need Aspirin: No Condition: Stable Instructions: Abdominal Pain (ED) Additional Instructions: Please continue taking pain medication but to have at home as prescribed. It is very important to be nothing by mouth which is nothing by mouth fluid or food after midnight. He needs to report to Dr. Adams's office at 6:30 AM on the [facility]. Referrals: PRIMARY CAREMD [Primary Care Provider] - 3-5 Days JOSEPH ADAMS MD [Staff Physician] - 3-5 Days Forms: Work/School Release Form(ED)
== END 2018-07-01 19:45 | disposition home or self-care (01) ==
LOC: ED 12:42
DX: K46.9 Unspecified abdominal hernia without obstruction or gangrene (principal); I10 Essential (primary) hypertension; E11.9 Type 2 diabetes mellitus without complications; M19.90 Unspecified osteoarthritis, unspecified site; Z88.5 Allergy status to narcotic agent; Z86.718 Personal history of other venous thrombosis and embolism; Z86.2 Personal history of diseases of the blood and blood-forming organs and certain disorders involving the immune mechanism; Z90.49 Acquired absence of other specified parts of digestive tract; Z90.710 Acquired absence of both cervix and uterus; Z98.84 Bariatric surgery status
CPT/HCPCS: 36415; 74177; 80053; 81001; 83690; 85025; 99284; Q9967